=== PATIENT | male | born 1945 | race Caucasian/White ===

== ENCOUNTER 2019-03-06 11:16 | Emergency (ER) | payer MEDICARE, OTHER ==
[~2019-03-06] VITALS: Ht 175.3 cm; Wt 93.4 kg
[~2019-03-06 11:16] MED LIST: DILT180C95 PO; IRBE150T28 PO; LEVO88TA5 PO; OMEP20CA10 PO
--- NOTE | 2019-03-06 11:29 | NUR ---
DR Patrick adam examined the pt.
[2019-03-06] MEDS ORDERED: SIMV20TA6 PO (11:34)
[2019-03-06] MEDS ORDERED: LEVE1000 PO (11:34)
[2019-03-06] MEDS ORDERED: ASPI81TA31 PO (11:34)
[2019-03-06 12:25] VITALS: BP 138/77
--- NOTE | 2019-03-06 12:26 | NUR ---
Patient discharged to home in stable conditon. Written and verbal after care instructions given. Patient verbalizes understanding of instructions.
== END 2019-03-06 12:26 | disposition home or self-care (01) ==
LOC: ER 11:16
DX: I49.3 Ventricular premature depolarization (principal); K21.9 Gastro-esophageal reflux disease without esophagitis; Z79.82 Long term (current) use of aspirin; Z79.899 Other long term (current) drug therapy
CPT/HCPCS: 36415; 70030-TC; 93005; A4663

== ENCOUNTER 2022-12-05 10:51 | Emergency (ER) | payer MEDICARE, BC ==
[~2022-12-05] VITALS: Ht 172.7 cm; Wt 81.2 kg
[~2022-12-05 10:51] MED LIST changes: +ASPI81TA31 PO; +DILT180C91 PO; -DILT180C95 PO; +LEVE1000 PO; -OMEP20CA10 PO; +OMEP20CA15 PO; +SIMV-46 PO
--- NOTE | 2022-12-05 11:30 | NUR ---
Pt arrived in the ED w/ c/o rib pain, right-sided, d/t fall. Pt denied chest pain.
--- NOTE | 2022-12-05 11:42 | NUR ---
Pt stated "can no longer wait for the x-ray". Demetrius arreguin MD aware.
== END 2022-12-05 11:42 | disposition left against medical advice (07) ==
LOC: MERGE 10:51 → ER 10:51
DX: R07.89 Other chest pain (principal); Z53.20 Procedure and treatment not carried out because of patient's decision for unspecified reasons
CPT/HCPCS: A4663